=== PATIENT | female | born 1960 | race African-American/Black ===

== ENCOUNTER 2017-02-02 12:11 | Emergency (ER) | payer SELFPAY ==
[~2017-02-02] VITALS: Ht 177.8 cm; Wt 85.0 kg
[~2017-02-02 12:11] MED LIST: BACT800T5 PO
[2017-02-02 12:13] VITALS: BP 146/88; PULSE 96; RESP 15; TEMP 98.3; O2SAT 99
--- NOTE | 2017-02-02 13:06 | PD ---
HPI Chief Complaint: Syncope/Near-Syncope Time Seen by Provider: 13:06 Travel History International Travel<30 days: No Contact w/Intl Traveler<30days: No Traveled to known affect area: No History of Present Illness HPI 56-year-old Afro-[place] female presents the emergency department status post reported syncopal episode this morning. Patient states she's had a headache for the past week with upper respiratory symptoms. Patient states she's had the hot sweats as well. She denies specific fever, cough, or sore throat. She denies any neurological focal deficits. He states she had a witnessed syncopal episode this morning when her friend called EMS who came and evaluated her and stated she was "okay". Patient continues to have headache 5 out of 10 currently. She is a little bit nauseous otherwise no other complaints. Patient has no history of diabetes, hypertension, or syncope, no history of seizures. She has no known drug allergies. PFSH Past Medical History Asthma: Yes (NO FLARE-UPS SINCE 1993) Diminished Hearing: No Past Surgical History Hysterectomy: Yes Social History Alcohol Use: No Tobacco Use: No Substance Use: No Allergies-Medications (Allergen,Severity, Reaction): Coded Allergies: No Known Allergies (Verified , 10/31/14) Reported Meds & Prescriptions Reported Meds & Active Scripts Active Review of Systems Except as stated in HPI: all other systems reviewed are Neg General / Constitutional: Positive: Chills, No: Fever Eyes: No: Visual changes HENT: Positive: Headaches, Rhinitis, Rhinorrhea, Congestion, No: Sore Throat, Neck Stiffness, Neck Pain, Earache Cardiovascular: No: Chest Pain or Discomfort Respiratory: No: Cough, Shortness of Breath, Wheezing Gastrointestinal: Positive: Nausea, No: Vomiting, Diarrhea, Abdominal Pain Genitourinary: No: Dysuria Musculoskeletal: No: Pain Skin: No Rash Neurologic: No: Weakness Psychiatric: No: Depression Endocrine: No: Polydipsia Hematologic/Lymphatic: No: Easy Bruising Physical Exam Narrative GENERAL: Patient appears in no acute distress. SKIN: Warm and dry. Normal color. Normal turgor. No diaphoresis. HEAD: Atraumatic. Normocephalic. Has generalized sinus tenderness with percussion and palpation. EYES: Pupils equal and round. No scleral icterus. No injection or drainage. ENT: No nasal bleeding or discharge. Mucous membranes pink and moist. Pharynx shows some postnasal drip but otherwise unremarkable. NECK: Trachea midline. Supple nontender. CARDIOVASCULAR: Regular rate and rhythm. RESPIRATORY: No accessory muscle use. Clear to auscultation. Breath sounds equal bilaterally. GASTROINTESTINAL: Abdomen soft, non-tender, nondistended. Hepatic and splenic margins not palpable. MUSCULOSKELETAL: Extremities without clubbing, cyanosis, or edema. No obvious deformities. NEUROLOGICAL: Awake and alert. No obvious cranial nerve deficits. Motor grossly within normal limits. Five out of 5 muscle strength in the arms and legs. Normal speech. PSYCHIATRIC: Appropriate mood and affect; insight and judgment normal. Data Data Last Documented VS Vital Signs Date Time Temp Pulse Resp B/P Pulse Ox O2 Delivery O2 Flow Rate FiO2 02/02/17 13:49 90 18 139/76 91 20 141/88 02/02/17 12:13 98.3 99 Orders Electrocardiogram (02/02/17 13:10) Ed Urine Pregnancytest Poc (02/02/17 13:10) Complete Blood Count With Diff (02/02/17 13:10) Comprehensive Metabolic Panel (02/02/17 13:10) Magnesium (Mg) (02/02/17 13:10) Urinalysis - C+S If Indicated (02/02/17 13:10) Chest, Single Ap (02/02/17 13:10) Ct Brain W/O Iv Contrast(Rout) (02/02/17 13:10) Ecg Monitoring (02/02/17 13:10) Iv Access Insert/Monitor (02/02/17 13:10) Oximetry (02/02/17 13:10) Sodium Chloride 0.9% Flush (Ns Flush) (02/02/17 13:15) Sodium Chlor 0.9% 1000 Ml Inj (Ns 1000 M (02/02/17 13:10) Orthostatic Vital Signs (02/02/17 13:10) Urine Culture (02/02/17 14:00) Labs Laboratory Tests Test 02/02/17 02/02/17 13:45 14:00 White Blood Count 9.3 TH/MM3 Red Blood Count 5.05 MIL/MM3 Hemoglobin 11.1 GM/DL Hematocrit 35.4 % Mean Corpuscular Volume 70.2 FL Mean Corpuscular Hemoglobin 22.1 PG Mean Corpuscular Hemoglobin 31.4 % Concent Red Cell Distribution Width 15.4 % Platelet Count 415 TH/MM3 Mean Platelet Volume 7.9 FL Neutrophils (%) (Auto) 65.8 % Lymphocytes (%) (Auto) 23.7 % Monocytes (%) (Auto) 9.1 % Eosinophils (%) (Auto) 0.6 % Basophils (%) (Auto) 0.8 % Neutrophils # (Auto) 6.1 TH/MM3 Lymphocytes # (Auto) 2.2 TH/MM3 Monocytes # (Auto) 0.8 TH/MM3 Eosinophils # (Auto) 0.1 TH/MM3 Basophils # (Auto) 0.1 TH/MM3 CBC Comment DIFF FINAL Differential Comment Sodium Level 137 MEQ/L Potassium Level 4.3 MEQ/L Chloride Level 106 MEQ/L Carbon Dioxide Level 21.5 MEQ/L Anion Gap 10 MEQ/L Blood Urea Nitrogen 24 MG/DL Creatinine 1.04 MG/DL Estimat Glomerular Filtration 66 ML/MIN Rate Random Glucose 93 MG/DL Calcium Level 9.0 MG/DL Magnesium Level 2.4 MG/DL Aspartate Amino Transf 15 U/L (AST/SGOT) Albumin 3.8 GM/DL Urine Color YELLOW Urine Turbidity CLEAR Urine pH 5.5 Urine Specific [place] 1.010 Urine Protein NEG mg/dL Urine Glucose (UA) NEG mg/dL Urine Ketones TRACE mg/dL Urine Occult Blood NEG Urine Nitrite NEG Urine Bilirubin NEG Urine Urobilinogen LESS THAN 2.0 MG/DL Urine Leukocyte Esterase MOD Urine RBC 2 /hpf Urine WBC 11 /hpf Urine Squamous Epithelial 1 /hpf Cells Urine Hyaline Casts 24 /lpf Urine Mucus FEW /lpf Microscopic Urinalysis Comment CULTURE INDICATED MDM Medical Decision Making Medical Screen Exam Complete: Yes Emergency Medical Condition: Yes Medical Record Reviewed: Yes Differential Diagnosis Reported syncope. Dehydration. Sinusitis. Intracranial bleed. Tumor. Infection. Narrative Course Patient appears medically stable at time of exam. She is in with sores in the room without difficulty. Labs ordered including CBC, CMP, magnesium, urinalysis. CT of the head and Chest x-ray is ordered. EKG is performed showing no significant findings of normal sinus rhythm. Orthostatics are ordered and found to be unremarkable. Labs are unremarkable except for apparent urinary tract infection. CT and chest x-ray are negative per radiologist. Patient is given 1000 mL of normal saline bolus as well as Rocephin 1000 mg IV. Patient will be continued on Keflex 500 mg 3 times a day 10 days. Patient is also given Flonase nasal spray 2 sprays each nostril daily. Patient is to rest, push fluids, and follow with her primary care physician. Diagnosis Primary Impression: Near syncope Additional Impressions: Sinusitis Qualified Code: J01.40 - Acute non-recurrent pansinusitis Urinary tract infection Qualified Code: N30.00 - Acute cystitis without hematuria Referrals: [facility] Primary Care Physician Patient Instructions: Dysuria (ED), General Instructions, Sinusitis (ED) Additional Instructions: EKG is performed showing no significant findings of normal sinus rhythm. Orthostatics are ordered and found to be unremarkable. Labs are unremarkable except for apparent urinary tract infection. CT and chest x-ray are negative per radiologist. Patient is given 1000 mL of normal saline bolus as well as Rocephin 1000 mg IV. Patient will be continued on Keflex 500 mg 3 times a day 10 days. Patient is also given Flonase nasal spray 2 sprays each nostril daily. Patient is to rest, push fluids, and follow with her primary care physician. Med/Other Pt SpecificInfo: Prescription(s) given Disposition: 01 DISCHARGE HOME Condition: Stable Tima Kim Feb 02, 2017 13:06
[2017-02-02] MEDS ORDERED: SODIUM CHLOR 0.9% 1000 ML INJ 1,000 ML IV ONE (13:10)
[2017-02-02] MEDS ORDERED: SODIUM CHLORIDE 0.9% FLUSH 10 ML FLUSH IVF PRN (13:15)
--- NOTE | 2017-02-02 13:31 | RADRPT ---
EXAM DATE/TIME: 02/02/2017 13:13 [facility] COMPARISON: No previous studies available for comparison. INDICATIONS : Palpitations MEDICAL HISTORY : None. SURGICAL HISTORY : None. ENCOUNTER: Initial ACUITY: 1 week PAIN SCORE: 0/10 LOCATION: chest FINDINGS: A single view of the chest demonstrates the lungs to be symmetrically aerated without evidence of mas s, infiltrate or effusion. The cardiomediastinal contours are unremarkable. Osseous structures are intact. CONCLUSION: No evidence of acute cardiopulmonary disease. Vitaly Madera MD on February 02, 2017 at 13:29 Board Certified Radiologist. This report was verified electronically.
[2017-02-02 13:49] VITALS: BP_SYST 139; BP_SYST 141; BP_DIAS 76; BP_DIAS 88; RESP 18; RESP 20
[2017-02-02 14:05] LABS: AUTOMATED NEUTROPHIL # 6.1 TH/MM3 (1.8-7.7); BASOPHIL # 0.1 TH/MM3 (0-0.2); BASOPHIL % 0.8 % (0.0-2.0); EOSINOPHIL # 0.1 TH/MM3 (0-0.4); EOSINOPHIL % 0.6 % (0.0-4.0); HEMATOCRIT 35.4 % (35.0-46.0); HEMO FLAGS DIFF FINAL; LYMPH % 23.7 % (9.0-44.0); LYMPHOCYTE # 2.2 TH/MM3 (1.0-4.8); MEAN CELL VOLUME 70.2 FL (80.0-100.0); MEAN CORPUSCULAR HEMOGLOBIN 22.1 PG (27.0-34.0); MEAN CORPUSCULAR HGB CONC 31.4 % (32.0-36.0); MONO % 9.1 % (0.0-8.0); NEUT % 65.8 % (16.0-70.0); PLATELET COUNT 415 TH/MM3 (150-450); RED BLOOD COUNT 5.05 MIL/MM3 (4.00-5.30); RED CELL DISTRIBUTION WIDTH 15.4 % (11.6-17.2); WHITE BLOOD COUNT 9.3 TH/MM3 (4.0-11.0)
--- NOTE | 2017-02-02 14:08 | RADRPT ---
EXAM DATE/TIME: 02/02/2017 13:44 [facility] COMPARISON: No previous studies available for comparison. INDICATIONS : Cephalgia and syncope today. RADIATION DOSE: 56.39 CTDIvol (mGy) MEDICAL HISTORY : None SURGICAL HISTORY : Hysterectomy. ENCOUNTER: Initial ACUITY: 1 week PAIN SCALE: 7/10 LOCATION: Bilateral head TECHNIQUE: Multiple contiguous axial images were obtained of the head. Using automated exposure control and adj ustment of the mA and/or kV according to patient size, radiation dose was kept as low as reasonably a chievable to obtain optimal diagnostic quality images. DICOM format image data is available electro nically for review and comparison. FINDINGS: CEREBRUM: The ventricles are normal for age. No evidence of midline shift, mass lesion, hemorrhage or acute in farction. No extra-axial fluid collections are seen. Patchy benign-appearing meningeal calcification noted including of the falx. POSTERIOR FOSSA: The cerebellum and brainstem are intact. The 4th ventricle is midline. The cerebellopontine angle i s unremarkable. EXTRACRANIAL: The visualized portion of the orbits is intact. SKULL: The calvaria is intact. No evidence of skull fracture. CONCLUSION: No acute intracranial abnormality demonstrated. Vitaly Madera MD on February 02, 2017 at 14:06 Board Certified Radiologist. This report was verified electronically.
[2017-02-02 14:21] LABS: BLOOD, URINE NEG (NEG); COMMENT (UR) CULTURE INDICATED; CULTURE IF INDICATED CULTURE INDICATED; GLUCOSE,URINE NEG (NEG); HYALINE CAST, URINE 24 /lpf (RARE); KETONE, URINE TRACE mg/dL (NEG); MUCUS URINE FEW /lpf (OCC); NITRITE,URINE NEG (NEG); PH, URINE 5.5 (5.0-8.5); SQUAMOUS EPITHELIAL CELL URINE 1 /hpf (0-5); URINE COLOR YELLOW (YELLW/STRAW)
[2017-02-02 14:25] LABS: ANION GAP 10 MEQ/L (5-15); AST (GOT) 15 U/L (15-37); BICARBONATE 21.5 MEQ/L (21.0-32.0); BLOOD UREA NITROGEN 24 MG/DL (7-18); CHLORIDE 106 MEQ/L (98-107); GLOMERULAR FILTRATION RATE 66 ML/MIN (>89); MAGNESIUM 2.4 MG/DL (1.5-2.5); POTASSIUM 4.3 MEQ/L (3.5-5.1); SODIUM (NA) 137 MEQ/L (136-145)
[2017-02-02 14:29] LABS: ALKALINE PHOSPHATASE 96 U/L (45-117); ALT (GPT) 19 U/L (10-53); TOTAL BILIRUBIN ADULT 0.3 MG/DL (0.2-1.0)
[2017-02-02] MEDS ORDERED: cefTRIAXone INJ 1,000 MG in SODIUM CHLORIDE 0.9% INJ 50 ML IV ONE (14:30)
[2017-02-02] MEDS ORDERED: FLUT1SPR5 EACH NARE (14:35)
[2017-02-02] MEDS ORDERED: CEPH500C PO (14:35)
--- NOTE | 2017-02-02 14:47 | PD ---
Data Data Last Documented VS Vital Signs Date Time Temp Pulse Resp B/P Pulse Ox O2 Delivery O2 Flow Rate FiO2 02/02/17 13:49 90 18 139/76 91 20 141/88 02/02/17 12:13 98.3 99 Orders Electrocardiogram (02/02/17 13:10) Ed Urine Pregnancytest Poc (02/02/17 13:10) Complete Blood Count With Diff (02/02/17 13:10) Comprehensive Metabolic Panel (02/02/17 13:10) Magnesium (Mg) (02/02/17 13:10) Urinalysis - C+S If Indicated (02/02/17 13:10) Chest, Single Ap (02/02/17 13:10) Ct Brain W/O Iv Contrast(Rout) (02/02/17 13:10) Ecg Monitoring (02/02/17 13:10) Iv Access Insert/Monitor (02/02/17 13:10) Oximetry (02/02/17 13:10) Sodium Chloride 0.9% Flush (Ns Flush) (02/02/17 13:15) Sodium Chlor 0.9% 1000 Ml Inj (Ns 1000 M (02/02/17 13:10) Orthostatic Vital Signs (02/02/17 13:10) Urine Culture (02/02/17 14:00) Ceftriaxone Inj (Rocephin Inj) (02/02/17 14:30) Labs Laboratory Tests Test 02/02/17 02/02/17 13:45 14:00 White Blood Count 9.3 TH/MM3 Red Blood Count 5.05 MIL/MM3 Hemoglobin 11.1 GM/DL Hematocrit 35.4 % Mean Corpuscular Volume 70.2 FL Mean Corpuscular Hemoglobin 22.1 PG Mean Corpuscular Hemoglobin 31.4 % Concent Red Cell Distribution Width 15.4 % Platelet Count 415 TH/MM3 Mean Platelet Volume 7.9 FL Neutrophils (%) (Auto) 65.8 % Lymphocytes (%) (Auto) 23.7 % Monocytes (%) (Auto) 9.1 % Eosinophils (%) (Auto) 0.6 % Basophils (%) (Auto) 0.8 % Neutrophils # (Auto) 6.1 TH/MM3 Lymphocytes # (Auto) 2.2 TH/MM3 Monocytes # (Auto) 0.8 TH/MM3 Eosinophils # (Auto) 0.1 TH/MM3 Basophils # (Auto) 0.1 TH/MM3 CBC Comment DIFF FINAL Differential Comment Sodium Level 137 MEQ/L Potassium Level 4.3 MEQ/L Chloride Level 106 MEQ/L Carbon Dioxide Level 21.5 MEQ/L Anion Gap 10 MEQ/L Blood Urea Nitrogen 24 MG/DL Creatinine 1.04 MG/DL Estimat Glomerular Filtration 66 ML/MIN Rate Random Glucose 93 MG/DL Calcium Level 9.0 MG/DL Magnesium Level 2.4 MG/DL Total Bilirubin 0.3 MG/DL Aspartate Amino Transf 15 U/L (AST/SGOT) Alanine Aminotransferase 19 U/L (ALT/SGPT) Alkaline Phosphatase 96 U/L Total Protein 8.0 GM/DL Albumin 3.8 GM/DL Urine Color YELLOW Urine Turbidity CLEAR Urine pH 5.5 Urine Specific [place] 1.010 Urine Protein NEG mg/dL Urine Glucose (UA) NEG mg/dL Urine Ketones TRACE mg/dL Urine Occult Blood NEG Urine Nitrite NEG Urine Bilirubin NEG Urine Urobilinogen LESS THAN 2.0 MG/DL Urine Leukocyte Esterase MOD Urine RBC 2 /hpf Urine WBC 11 /hpf Urine Squamous Epithelial 1 /hpf Cells Urine Hyaline Casts 24 /lpf Urine Mucus FEW /lpf Microscopic Urinalysis Comment CULTURE INDICATED MDM Supervised Visit with RACHELLE: Yes Narrative Course The history, exam, and medical decision-making in the associated mid-level provider note were completed with my assistance. I reviewed and agree with the findings presented. I attest that I had a [id number] encounter with the patient on the same day, and personally performed and documented my assessment and findings in the medical record. *My assessment and Findings: 56 year-old woman who is been feeling a little bit abnormal with some headaches and cough cold symptoms who had a syncopal episode today. By Friday describes that she got pale diaphoretic felt dizzy was in ago down when she collapsed. Sounds like a vasovagal episode. She looks well now. She is feeling much improved except for still some headache. CT head was negative. Labs are unremarkable. Recommend outpatient follow-up. She is a little bit of pyuria, not sure that she has a UTI we'll treat her, cultures pending also. Diagnosis Primary Impression: Near syncope Additional Impressions: Urinary tract infection Qualified Code: N30.00 - Acute cystitis without hematuria Sinusitis Qualified Code: J01.40 - Acute non-recurrent pansinusitis Referrals: [facility] Primary Care Physician Patient Instructions: General Instructions, Sinusitis (ED), Dysuria (ED) Departure Forms: Tests/Procedures Additional Instruction: EKG is performed showing no significant findings of normal sinus rhythm. Orthostatics are ordered and found to be unremarkable. Labs are unremarkable except for apparent urinary tract infection. CT and chest x-ray are negative per radiologist. Patient is given 1000 mL of normal saline bolus as well as Rocephin 1000 mg IV. Patient will be continued on Keflex 500 mg 3 times a day 10 days. Patient is also given Flonase nasal spray 2 sprays each nostril daily. Patient is to rest, push fluids, and follow with her primary care physician. Scripts Fluticasone Nasal [employer] (Flonase Nasal [employer])50 Mcg/Act [id number] Mcg EACH NARE DAILY #1 BOTTLE Prov:Arnie Cox MD 02/02/17 Cephalexin 500 Mg [id number] Mg PO Q8H #30 CAP Prov:Arnie Cox MD 02/02/17 Disposition: 01 DISCHARGE HOME Condition: Stable Arnie Cox MD Feb 02, 2017 14:47
--- NOTE | 2017-02-03 15:54 | EKG ---
Date Performed: 02/02/2017 Time Performed: 13:35:31 PTAGE: 56 years EKG: Sinus rhythm LOW QRS VOLTAGE IN PRECORDIAL LEADS ANTEROSEPTAL MYOCARDIAL INFARCTION, AGE INDETERMINATE ABNORMAL E CG PREVIOUS TRACING : 10/31/2014 01.40.56 DOCTOR: Ventura Mccall Interpretating Date/Time 02/03/2017 15:53:06
== END 2017-02-02 15:25 | disposition home or self-care (01) ==
LOC: NEPD 12:11
DX: R55 Syncope and collapse (principal); N30.00 Acute cystitis without hematuria; J01.40 Acute pansinusitis, unspecified
CPT/HCPCS: 70450; 71010; 80053; 81001; 83735; 84703; 85025; 87086; 93005; 96374; 99285; J0696; J7030